=== PATIENT | male | born 1990 | race Caucasian/White ===

== ENCOUNTER 2019-12-24 03:15 | Emergency (ER) | payer MEDICAID ==
[~2019-12-24] VITALS: Ht 172.7 cm; Wt 68.0 kg
--- NOTE | 2019-12-24 03:15 | NUR ---
ED Nurse Note: PT BROUGHT IN BY AMBULANCE 61 C/O ANXIOUSNESS AFTER TAKING 1GM COCAINE. VSS, NAD.
--- NOTE | 2019-12-24 03:25 | Emergency Room Report ---
History of Present Illness General Chief Complaint: Substance Abuse Source: Patient Present Illness HPI This a 28-year-old male with no past medical history. He presents with chief complaint of drug overdose. He called 911 because he felt nervous and said his heart was beating fast but he felt numb and felt dry mouth and nauseous. He said he did a gram of cocaine tonight. Not suicidal homicidal. Normally does not do that much cocaine he said. He denies any other complaint. No syncope. Does complain of lightheadedness and dizziness. Allergies: Coded Allergies: No Known Allergies (Unverified , 12/24/19) COVID-19 Screening Contact w/high risk pt: No Recent Travel to affected area: No Experienced COVID-19 symptoms?: No Patient History Past Medical History: see triage record, old chart reviewed Past Surgical History: none Pertinent Family History: none Social History: Denies: smoking Immunizations: other Reviewed Nursing Documentation: PMH: Agreed; PSxH: Agreed Review of Systems Eye: Denies: eye pain, blurred vision ENT: Denies: ear pain, nose congestion, throat swelling Respiratory: Reports: shortness of breath; Denies: cough Cardiovascular: Reports: palpitations; Denies: chest pain Gastrointestinal: Denies: abdominal pain, diarrhea, nausea, vomiting Musculoskeletal: Denies: back pain, joint pain Skin: Denies: rash Neurological: Denies: headache, numbness Endocrine: Denies: increased thirst, increased urine Hematologic/Lymphatic: Denies: easy bruising All Other Systems: negative except mentioned in HPI Physical Exam Vital Signs Date Time Temp Pulse Resp B/P (MAP) Pulse Ox O2 Delivery O2 Flow Rate FiO2 12/24/19 03:08 98.2 124 18 112/85 (94) 98 Room Air Vitals with tachycardia Sp02 EP Interpretation: reviewed, normal General Appearance: well appearing, no apparent distress, alert Head: normocephalic, atraumatic Eyes: bilateral eye PERRL, bilateral eye EOMI ENT: hearing grossly normal, normal pharynx Neck: full range of motion, supple, no meningismus Respiratory: chest non-tender, lungs clear, normal breath sounds Cardiovascular #1: regular rate, rhythm, no murmur Gastrointestinal: normal bowel sounds, non tender, no mass, no organomegaly, no bruit, non-distended Musculoskeletal: back normal, normal range of motion, gait/station normal Neurologic: alert Psychiatric: anxious Medical Decision Making Diagnostic Impression: Primary Impression: Cocaine abuse Additional Impression: Panic attack ER Course Patient presents with a drug-induced panic attack. He is better now. No evidence of ACS, PE, dissection. Will discharge home. Last Vital Signs Date Time Temp Pulse Resp B/P (MAP) Pulse Ox O2 Delivery O2 Flow Rate FiO2 12/24/19 03:08 98.2 124 18 112/85 (94) 98 Room Air Status: improved Disposition: HOME, SELF-CARE Condition: Stable Patient Instructions: Stimulant Use Disorder-Cocaine Additional Instructions: Abstain from drugs and alcohol. Follow-up with your doctor in 7 days. Return if worse. Piter Doresy MD Dec 24, 2019 03:25
[2019-12-24] MEDS ORDERED: LORazepam Inj 2mg/ml 1ml IM ONE (03:30)
[2019-12-24 03:43] VITALS: BP 115/79
[2019-12-24 04:00] VITALS: BP 122/77
--- NOTE | 2019-12-24 04:00 | NUR ---
ER DISCHARGE NOTE: Patient is cleared to be discharged per ERMD, pt is aox4, on room air, with stable vital signs. pt was given dc and prescription instructions, pt was able to verbalize understanding, pt id band and iv site removed without complications. pt is able to ambulate with steady gait. pt took all belongings, on [employer] transportation
== END 2019-12-24 04:00 | disposition home or self-care (01) ==
LOC: EDBD 03:15 → EMR 03:52
DX: F19.10 Other psychoactive substance abuse, uncomplicated (principal); F41.0 Panic disorder [episodic paroxysmal anxiety]
CPT/HCPCS: 96372; Z7502; 99283

== ENCOUNTER 2019-12-24 06:33 | Emergency (ER) | payer MEDICAID ==
[~2019-12-24] VITALS: Ht 172.7 cm; Wt 99.8 kg
--- NOTE | 2019-12-24 06:45 | NUR ---
ED Nurse Note: PT WALKED IN TO ED STATING " I FEEL ANXIOUS". PT WAS SEEN LAST NIGHT FOR COCAINE USE. VSS, TACHY 109, STATES 4/10 GENERALIZED PAIN. NAD.
--- NOTE | 2019-12-24 06:45 | NUR ---
ED Nurse Note: AAOX4, AMBULATORY
[2019-12-24 07:00] VITALS: BP 137/83
[2019-12-24] MEDS ORDERED: Metoclopramide 10mg/2ml Inj IVP ONE (07:00)
[2019-12-24] MEDS ORDERED: DiphenhydrAMINE 50mg/ml Inj IVP ONE (07:00)
--- NOTE | 2019-12-24 07:00 | NUR ---
ED Nurse Note: BLOOD AND URINE COLLECTED AND SENT TO LAB
--- NOTE | 2019-12-24 07:01 | Emergency Room Report ---
History of Present Illness General Chief Complaint: General Complaint Source: Patient Present Illness HPI Patient represents to the emergency department. He was seen earlier today for panic attack. He has been doing cocaine and thinks he overdosed. He is feeling short of breath, tingling, nauseated and dehydrated at this time. He denies any fevers or chills or productive cough. He has a little bit of blood from the side of his nose. He was given a dose of Ativan at 330 this morning. He still feels anxious and disoriented. He denies any suicidal or homicidal ideation. No labs or EKG were performed this morning. Patient denies vomiting blood or coffee grounds. He denies melena. No fevers, chills, sore throat, chest pain, vomiting, diarrhea, dysuria, abdominal pain, shortness of breath, joint pain, rashes, visual changes, headache. He is uncertain of his social situation as he states he is unwelcome with a friend where he was staying before. He will not elaborate. Allergies: Coded Allergies: No Known Allergies (Unverified , 12/24/19) COVID-19 Screening Contact w/high risk pt: No Recent Travel to affected area: No Experienced COVID-19 symptoms?: No Patient History Past Medical History: see triage record Social History: Reports: alcohol use - rare, drug use; Denies: smoking Social History Narrative personal lines insurance advisor Reviewed Nursing Documentation: PMH: Agreed; PSxH: Agreed Nursing Documentation-PM Past Medical History: No Stated History Review of Systems All Other Systems: negative except mentioned in HPI Physical Exam Vital Signs Date Time Temp Pulse Resp B/P (MAP) Pulse Ox O2 Delivery O2 Flow Rate FiO2 12/24/19 06:41 98.8 109 20 137/83 (101) 99 Room Air Sp02 EP Interpretation: reviewed, normal General Appearance: well appearing, no apparent distress, GCS 15 Head: normocephalic Eyes: bilateral eye PERRL, bilateral eye Scleral Injection ENT: normal pharynx, moist mucus membranes, other - Some blood from the left side of his nose no active bleeding Neck: full range of motion, supple Respiratory: lungs clear, normal breath sounds Cardiovascular #1: regular rate, rhythm Cardiovascular #2: 2+ radial (R) Gastrointestinal: normal inspection Musculoskeletal: back normal, normal range of motion, gait/station normal Neurologic: alert, oriented x3, cerebellar normal, speech normal, grossly normal Psychiatric: no suicidal/homicidal ideation, anxious Skin: no rash, warm/dry Medical Decision Making Diagnostic Impression: Primary Impression: Cocaine abuse Additional Impression: Situational stress ER Course Patient presents with nausea tingling after use of cocaine. Differential includes acute myocardial infarction, electrolyte imbalance, gastritis, panic attack, dehydration, ill effects of cocaine amongst others. Evaluation with EKG , and labs. Treatment IV hydration, Reglan, Benadryl and Pepcid. EKG NSR rate 95. Labs significant only for positive tox screen and elevated white count. VS and patient improved. Patient calm. States not sure where he will go. No medical emergency at this time. No evidence of infection. Patient stable for outpatient observation and treatment. Laboratory Tests Test 12/24/19 05:20 12/24/19 07:05 Urine Opiates Screen Negative (NEGATIVE) Urine Barbiturates Screen Negative (NEGATIVE) Phencyclidine (PCP) Screen Negative (NEGATIVE) Urine Amphetamines Screen Negative (NEGATIVE) Urine Benzodiazepines Screen Negative (NEGATIVE) Urine Cocaine Screen Positive (NEGATIVE) H Urine Marijuana (THC) Screen Positive (NEGATIVE) H White Blood Count 15.1 K/UL (4.8-10.8) H Red Blood Count 5.78 M/UL (4.70-6.10) Hemoglobin 16.4 G/DL (14.2-18.0) Hematocrit 47.8 % (42.0-52.0) Mean Corpuscular Volume 83 FL (80-99) Mean Corpuscular Hemoglobin 28.4 PG (27.0-31.0) Mean Corpuscular Hemoglobin Concent 34.4 G/DL (32.0-36.0) Red Cell Distribution Width 10.8 % (11.6-14.8) L Platelet Count 250 K/UL (150-450) Mean Platelet Volume 6.0 FL (6.5-10.1) L Neutrophils (%) (Auto) 80.6 % (45.0-75.0) H Lymphocytes (%) (Auto) 12.5 % (20.0-45.0) L Monocytes (%) (Auto) 6.4 % (1.0-10.0) Eosinophils (%) (Auto) 0.0 % (0.0-3.0) Basophils (%) (Auto) 0.4 % (0.0-2.0) Sodium Level 139 MMOL/L (136-145) Potassium Level 3.5 MMOL/L (3.5-5.1) Chloride Level 99 MMOL/L (98-107) Carbon Dioxide Level 22 MMOL/L (21-32) Anion Gap 18 mmol/L (5-15) H Blood Urea Nitrogen 15 mg/dL (7-18) Creatinine 1.1 MG/DL (0.55-1.30) Estimated Glomerular Filtration Rate > 60 mL/min (>60) Glucose Level 105 MG/DL (74-106) Calcium Level 10.2 MG/DL (8.5-10.1) H Total Bilirubin 1.3 MG/DL (0.2-1.0) H Direct Bilirubin 0.1 MG/DL (0.0-0.3) Aspartate Amino Transferase (AST) 14 U/L (15-37) L Alanine Aminotransferase (ALT) 32 U/L (12-78) Alkaline Phosphatase 80 U/L (46-116) Total Creatine Kinase 147 U/L (26-308) Total Protein 9.2 G/DL (6.4-8.2) H Albumin 4.8 G/DL (3.4-5.0) Globulin 4.4 g/dL Albumin/Globulin Ratio 1.1 (1.0-2.7) Salicylates Level < 0.2 ug/mL (2.8-20) L Acetaminophen Level < 2 MCG/ML (10-30) L Serum Alcohol < 3 mg/dL EKG Diagnostic Results Rate: normal Rhythm: NSR ST Segments: no acute changes Rhythm Strip Diag. Results EP Interpretation: yes Rhythm: NSR, no PVC's, no ectopy Last Vital Signs Date Time Temp Pulse Resp B/P (MAP) Pulse Ox O2 Delivery O2 Flow Rate FiO2 12/24/19 10:15 98.8 97 18 139/82 99 Room Air Status: improved Disposition: HOME, SELF-CARE Condition: Improved Yuval Esparza MD Dec 24, 2019 07:01
[2019-12-24] MEDS ORDERED: Bacitracin Oint UD TOPIC ONE (07:15)
--- NOTE | 2019-12-24 07:27 | NUR ---
ED Nurse Note: report received from Rodolfo Perez RN. pt resting in bed. Pt states he wants to sleep because his "emotions are too much to handle." Pt was prompted to explain his thought process but pt refused.
--- NOTE | 2019-12-24 07:28 | NUR ---
ED Nurse Note: GAVE REPORT TO CY GORDON
[2019-12-24 07:30] LABS: BASOPHILS % (AUTO) 0.4 % (0.0-2.0); HEMATOCRIT 47.8 % (42.0-52.0); HEMOGLOBIN 16.4 G/DL (14.2-18.0); LYMPHOCYTES % (AUTO) 12.5 % (20.0-45.0); MEAN CORPUSCULAR VOLUME 83 FL (80-99); MONOCYTES % (AUTO) 6.4 % (1.0-10.0); NEUTROPHILS % (AUTO) 80.6 % (45.0-75.0); PLATELET COUNT 250 K/UL (150-450); RED BLOOD COUNT 5.78 M/UL (4.70-6.10); RED CELL DISTRIBUTION WIDTH 10.8 % (11.6-14.8); WHITE BLOOD COUNT 15.1 K/UL (4.8-10.8)
[2019-12-24 07:36] LABS: ANION GAP 18 mmol/L (5-15); BLOOD UREA NITROGEN 15 mg/dL (7-18); CALCIUM 10.2 MG/DL (8.5-10.1); CARBON DIOXIDE 22 MMOL/L (21-32); CHLORIDE 99 MMOL/L (98-107); CREATININE 1.1 MG/DL (0.55-1.30); POTASSIUM 3.5 MMOL/L (3.5-5.1); SODIUM 139 MMOL/L (136-145)
[2019-12-24 07:51] LABS: ALANINE AMINOTRANSFERASE 32 U/L (12-78); ALBUMIN 4.8 G/DL (3.4-5.0); ALBUMIN/GLOBULIN RATIO 1.1 (1.0-2.7); ALKALINE PHOSPHATASE 80 U/L (46-116); ASPARTATE AMINO TRANSFERASE 14 U/L (15-37); BILIRUBIN,TOTAL 1.3 MG/DL (0.2-1.0); CREATINE KINASE 147 U/L (26-308)
[2019-12-24 07:57] LABS: BILIRUBIN,DIRECT 0.1 MG/DL (0.0-0.3)
[2019-12-24 09:20] VITALS: BP 132/79
--- NOTE | 2019-12-24 09:43 | NUR ---
ED Nurse Note: ERMD at bedside
--- NOTE | 2019-12-24 09:50 | NUR ---
ED Nurse Note: IV line discontinued per ERMD
--- NOTE | 2019-12-24 09:56 | NUR ---
ER DISCHARGE NOTE: Patient is cleared to be discharged home per ERMD, pt is aox4, on room air, with stable vital signs. pt was given dc instructions, pt was able to verbalize understanding, pt id band and iv site removed without complications. pt is able to ambulate with steady gait. pt took all belongings.
[2019-12-24 10:15] VITALS: BP 139/82
== END 2019-12-24 09:56 | disposition home or self-care (01) ==
LOC: EMR 06:54
DX: F14.10 Cocaine abuse, uncomplicated (principal); F43.9 Reaction to severe stress, unspecified
CPT/HCPCS: 36415; 80053; 80307; 82248; 82550; 85025; 93005; 96361; 96374; 96375; G0480; G0481; J1200; J2765; J7030; S0028; Z7502; 99284